=== PATIENT | female | born 1965 | race Caucasian/White ===

== ENCOUNTER 2024-12-31 20:00 | Outpatient (CLI) | payer MEDICARE, SELFPAY | END 2024-12-31 20:01 | disposition home or self-care (01) | LOC: SLEEP 23:58 | PROVIDERS: PCP Nurse Practitioner Primary Care; Visit Provider Anesthesiology Pain Medicine | DX: G47.33 Obstructive sleep apnea (adult) (pediatric) (principal) | CPT/HCPCS: 95810 ==

== ENCOUNTER 2025-04-02 10:20 | Outpatient (CLI) | payer MEDICARE, SELFPAY ==
--- NOTE | 2025-04-02 10:20 | MM_ITS ---
WS: [id number] BILATERAL 3D TOMOSYNTHESIS DIGITAL SCREENING MAMMOGRAPHY WITH CAD CLINICAL INFORMATION: SCREENING HISTORY: Screening mammogram. No current complaints. COMPARISON: None. TECHNIQUE: Bilateral CC and MLO views. FINDINGS: Scattered fibroglandular densities bilaterally. No suspicious focal mass, asymmetry, calcifications, or architectural distortion. No evidence of malignancy. MM/MM scr BI tomosynthesis [id number] IMPRESSION: DENSITY: There are scattered areas of fibroglandular density. BI-RADS: 1 - Negative. FOLLOW UP: 1 Year Follow-up Recommend return to annual screening mammography.
== END 2025-04-02 10:21 | disposition home or self-care (01) ==
LOC: MOBLMAM 10:27
PROVIDERS: PCP Nurse Practitioner Primary Care; Visit Provider Nurse Practitioner Primary Care
DX: Z12.31 Encounter for screening mammogram for malignant neoplasm of breast (principal)
CPT/HCPCS: 77063; 77067

== ENCOUNTER 2025-05-04 00:59 | Emergency (ER) | payer MEDICARE, SELFPAY ==
[2025-05-04 01:08] VITALS: BP 107/68; PULSE 86; RESP 16; TEMP 36.9; O2SAT 97; BMI 33.0
--- OUTSIDE RECORDS SUMMARY | 2025-05-04 01:08 | XMS_ITS | Clinical Summary ---
Author Organization [facility] Address [address] Rodriguez: [place] [address] Care Team Providers Care Outsoles Channel Opener Name Role Phone Unavailable Primary Care Provider Unavailabl e Allergies Active Allergy Reactions Criticality Noted Date Comments Codeine Itching Low 03/15/2017 Nose itched-30yrs ago Medications citalopram (CeleXA) 40 mg tablet Take 40 mg by mouth daily. 8 Active omeprazole (PriLOSEC) 40 mg Capsule, Delayed Release(E.C.) Take 40 mg by mouth daily. 7 Active atenoloL (TENORMIN) 25 mg tablet Take 25 mg by mouth daily. 8 Active metFORMIN (GLUCOPHAGE) 500 mg tablet Take 1,000 mg by mouth 2 times daily with meals. 7 Active nortriptyline (PAMELOR) 10 mg capsule TAKE 5 CAPSULES BY MOUTH DAILY AT BEDTIME FOR HEADACHE AND INSOMNIA 3 Active tiZANidine (ZANAFLEX) 4 mg Tablet TAKE 1 TO 2 TABLETS BY MOUTH EVERY 6 TO 8 HOURS NEEDED do not exceed THREE doses per day 2 Active glipiZIDE (GLUCOTROL) 10 mg tablet TAKE ONE TABLET BY MOUTH two times every day before a meal 2 Active ibuprofen (MOTRIN) 800 mg tablet TAKE 1 TABLET BY MOUTH EVERY 8 HOURS WITH FOOD 2 Active albuterol (PROVENTIL,MARIO EDMOND) 2.5 mg /3 mL (0.083 %) Solution for Nebulization albuterol sulfate 2.5 mg/3 mL (0.083 %) solution for nebulization INHALE THE CONTENTS OF ONE VIAL Q 4-6 HOURS PRN WITH A MAX OF 4 TIMES D Active ALPRAZolam (XANAX) 0.5 mg tablet Take 0.5 mg by mouth daily. 3 Active atorvastatin (LIPITOR) 40 mg tablet atorvastatin 40 mg tablet TK 1 T PO QHS Active benzonatate (TESSALON) 100 mg capsule benzonatate 100 mg capsule TK 2 C PO TID FOR 10 DAYS PRF COUGH Active lamoTRIgine (LaMICtal) 25 mg tablet Take 25 mg by mouth daily. 2 Active meloxicam (MOBIC) 7.5 mg tablet meloxicam 7.5 mg tablet TK 1 T PO BID WC Active carvediloL (COREG) 6.25 mg tablet carvedilol 6.25 mg tablet TK 1 T PO QD Active losartan (COZAAR) 100 mg tablet Take 100 mg by mouth daily. 2 Active fluconazole (DIFLUCAN) 150 mg tablet Take 1 Tablet (150 mg) by mouth every third day. 2 Tablet 3 Active nitroglycerin (NITROSTAT) 0.4 mg Tablet, Sublingual Place 1 Tablet (0.4 mg) under tongue every 5 minutes as needed for Chest Pain. 30 Tablet 3 3 Active buPROPion HCL (Wellbutrin XL) 150 mg Extended Release 24 hour tablet Take 1 Tablet (150 mg) by mouth daily in the morning. 90 Tablet 3 3 Active traZODone (DESYREL) 100 mg tablet Take 1 Tablet (100 mg) by mouth daily at bedtime. 90 Tablet 3 3 Active cholecalciferol 1,250 mcg (50,000 unit) Capsule Take 1 Capsule (50,000 Units) by mouth every 7 days. 13 Capsule 3 3 Active Blood-Glucose Meter Check blood sugar twice daily as directed. E11.65 1 Each 3 Active lancets Check blood sugar twice daily as directed. E11.65 400 Each 4 3 Active blood sugar diagnostic Strip Check blood sugar twice daily as directed. E11.65 400 Strip 4 3 Active Active Problems Problem Noted Date Diagnosed Date Angina pectoris 11/10/2022 Severe episode of recurrent major depressive disorder, without psychotic features 11/10/2022 Morbid obesity 11/10/2022 Mixed hyperlipidemia 11/10/2022 Tension-type headache, not intractable 3 Old [place] (myocardial infarction) 11/10/2022 Type 2 diabetes mellitus wit h complication, without long-term current use of insulin 12/07/2017 Essential hypertension 12/07/2017 Anxiety 12/07/2017 Non-cardiac chest pain 12/07/2017 Leukocytosis 12/07/2017 Encounters Date Type Department Care Team Description 03/27/2025 External Device Data [facility] ABSTRACTION Provider, Abstract 03/01/2025 External Device Data [facility] ABSTRACTION Provider, Abstract 02/28/2025 External Device Data [facility] ABSTRACTION Provider, Abstract from Last 3 Months Immunizations Immunization Administration Dates Next Due (ADACEL/BOOSTRIX)(10 YR UP) TDAP VACCINE, 0.5ML, IM 06/18/2019 Influenza Seasonal Unspecified Formulation IM Family History Medical History Relation Name Comments Heart Disease Father Hypertension Father Diabetes Maternal Grandmother Cancer Mother Hypertension Mother Kidney Disease Mother Stroke Mother Cancer Sister Relation Name Status Comments Father Maternal Grandmother Mother Sister Social History Tobacco Use Types Packs/Day Years Used Date Smoking Tobacco: Former Cigarettes Q uit: 04/09/2021 Smokeless Tobacco: Never Tobacco Cessation:Counseling Given: No Alcohol Use Standard Drinks/Week Comments No 0 (1 standard drink = 0.6 oz pur e alcohol) Comments No Sex and Gender Information Value Date Recorded Sex Assigned at Not on file Legal Sex Female 5:04 AM BICYCLE REPAIRER Gender Identity Not on file Sexual Orientation Not on file Last Filed Vital Signs Vital Sign Reading Time Taken Comments Blood Pressure 158/92 11/10/2022 10:52 AM BICYCLE REPAIRER Pulse 101 11/10/2022 10:47 AM BICYCLE REPAIRER Temperature 36.2 C (97.1 F) 11/10/2022 10:47 AM BICYCLE REPAIRER Respiratory Rate 13 06/18/2019 11:1 0 AM CDT Oxygen Saturation 95% 11/10/2022 10: 47 AM BICYCLE REPAIRER Inhaled Oxygen Concentration - - Weight 106.8 kg (235 lb 6.4 oz) 023 10:47 AM BICYCLE REPAIRER Height 170.2 cm (5' 7 ) 11/10/2022 10:4 7 AM BICYCLE REPAIRER Body Mass Index 36.87 11/10/2022 10:47 AM BICYCLE REPAIRER Plan of Treatment Health Maintenance Due Date Last Done Comments DIABETES ANNUAL FOOT EXAM 1983 DIABETES ANNUAL RETINAL EXAM 1983 DIABETES MICROALBUMIN ANNUAL SCREEN 1983 HPV/Cotest (21-29) 1986 CERVICAL CANCER SCREENING 1995 HPV/Cotest (30-65) 1995 PAP SMEAR 1995 COLORECTAL SCREENING 2010 Colorectal Cancer Screening 2010 FIT-DNA Q 3 years 2010 FIT/FOBT Q 1 year 2010 Flex Sig/CT Colonography Q 5 years 2010 ZOSTER VACCINE (1 of 2) 2015 BREAST CANCER SCREENING 05/20/2018 05/20/20 17, 05/20/2017, 01/27/2016 DIABETES HBA1C Q 6 MONTHS 07/01/20232022, 11/11/2022, 12/07/2017, Additional history exists LDL CHOLESTEROL ANNUAL 11/11/2023 , 05/09/2017, 01/20/2017 COVID-19 Vaccine (2 - season) 2024 07/07/2021 RSV VACCINE (60+ or ) (1 - Risk 60-74 years 1-dose series) 2025 INFLUENZA VACCINE (#1) 2025 08/09/2022, 2016 DTAP/TDAP/TD VACCINES (3 - Td or Tdap) 03/24/2030 03/24/2020, 06/18/2019 HEPATITIS B VACCINES Aged Out No long er eligible based on patient's age to complete this topic Procedures Procedure Name Priority Date/Time Associated Diagnosis Comments LIPID PANEL Routine 11/11/2022 2:36 PM BICYCLE REPAIRER Type 2 diabetes mellitus with other circulatory complication, without long-term current use of insulin ([facility]) Essential hypertension HEMOGLOBIN A1C Routine 11/11/2022 2:36 PM BICYCLE REPAIRER Type 2 diabetes mellitus with other circulatory complication, without long-term current use of insulin (CMS/HCC) MAMMO SCREEN BILAT W OR WO CAD Routine 05/20/2017 12:00 AM CDT from Last 3 Months or Most Recently Relevant to Health Maintenance Results * (ABNORMAL) HEMOGLOBIN A1C (11/11/2022 2:36 PM BICYCLE REPAIRER) HEMOGLOBIN A1C 11.3(H) <5.7 % of total Hgb [facility] Comment: For someone without known diabetes, a hemoglobin A1c value of 6.5% or greater indicates that they may have diabetes and this should be confirmed with a follow-up test. For someone with known diabetes, a value <7% indicates that their diabetes is well controlled and a value greater than or equal to 7% indicates suboptimal control. A1c targets should be individualized based on duration of diabetes, age, comorbid conditions, and other considerations. Currently, no consensus exists regarding use of hemoglobin A1c for diagnosis of diabetes for children. ESTIMATED AVERAGE GLUCOSE (MG/DL) 278 mg/dL [facility] ESTIMATED AVERAGE GLUCOSE (MMOL/L) 15.4 mmol/L [facility] Comment: Test Performed at: [facility] [address] [facility] [place] [address] Suni Dasilva MD Blood 11/11/2022 2:36 PM BICYCLE REPAIRER 11/12/2022 1:09 AM BICYCLE REPAIRER Sonia Carlos [facility] CHEMISTRY ORDERABLES Final Result [facility] [phone] [employer] [address] [facility] [employer] [phone] * (ABNORMAL) LIPID PANEL (11/11/2022 2:36 PM BICYCLE REPAIRER) CHOLESTEROL 176 <200 mg/dL [facility] HDL 45(L) > OR = 50 mg/dL [facility] TRIGLYCERIDE 156(H) <150 mg/dL [facility] LDL CALCULATED 104(H) mg/dL (calc) [facility] Comment: Reference range: <100 Desirable range <100 mg/dL for primary prevention; <70 mg/dL for patients with CHD or diabetic patients with > or = 2 CHD risk factors. LDL-C is now calculated using the Nicole calculation, which is a validated novel method providing better accuracy than the Friedewald equation in the estimation of LDL-C. Luis EMERY et al. VIRGILIO. 2013;310(19): 7282-1011 (http://education.Okeo/faq/NIC955) CHOL/HDL RATIO 3.9 <5.0 (calc) [facility] TOTAL NON-HDL CHOL(LDL+VLDL) 131(H) <130 mg/dL (calc) [employer] [facility] Comment: For patients with diabetes plus 1 major ASCVD risk factor, treating to a non-HDL-C goal of <100 mg/dL (LDL-C of <70 mg/dL) is considered a therapeutic option. Test Performed at: [employer] [address] [place] [address] Suni Dasilva MD Blood 11/11/2022 2:36 PM BICYCLE REPAIRER 11/12/2022 1:09 AM BICYCLE REPAIRER Sonia Carlos OIL EXPELLER OPERATOR CHEMISTRY ORDERABLES Final Result [facility] [phone] [place] [employer] [facility] [address] [place] [address] * MAMMO SCREEN BILAT W OR WO CAD (05/20/2017 12:00 AM CDT) Anatomical Region Laterality Modality Breast Bilateral Other us Abstract Spg Provider MAMMO ORDERABLES Final Res ult from Last 3 Months or Most Recently Relevant to Health Maintenance Insurance [facility] MEDIC[facility] HMO
--- OUTSIDE RECORDS SUMMARY | 2025-05-04 01:08 | XMS_ITS | Clinical Summary ---
Author Organization [facility] Address [address] [address] [place] [address] Care Team Providers Care Fireman Helper Name Role Phone Unavailable Primary Care Provider Unavailabl e Allergies Active Allergy Reactions Criticality Noted Date Comments Codeine Itching Low 03/15/2017 Nose itched-30yrs ago Medications metFORMIN (GLUCOPHAGE) 500 mg tablet Take 1,000 mg by mouth 2 times daily with meals. Active losartan (COZAAR) 50 mg tablet Take 50 mg by mouth daily. Active carvedilol (COREG) 12.5 mg tablet Take 12.5 mg by mouth daily . Active omeprazole (PriLOSEC) 40 mg Capsule, Delayed Release(E.C.) Take 40 mg by mouth daily. Active HYDROcodone-talat taminophen (NORCO) 5-325 mg tablet Take 1 Tablet by mouth every 4 hours as needed for Pain, Moderate. Max Daily Amount: 6 Tablets 20 Tablet 08/02/2017 Active atenolol (TENORMIN) 25 mg tablet Take 25 mg by mouth daily. Active citalopram (CeleXA) 40 mg tablet Take 40 mg by mouth daily. Active nitroglycerin (NITROSTAT) 0.4 mg Tablet, Sublingual Place 0.4 mg under tongue every 5 minutes as needed for Chest Pain. Active GLIPIZIDE ORAL Take by mouth. Active Active Problems Problem Noted Date Diagnosed Date Non-cardiac chest pain 12/07/2017 Type 2 diabetes mellitus wit h complication, without long-term current use of insulin 12/07/2017 Essential hypertension 12/07/2017 Anxiety 12/07/2017 Leukocytosis 12/07/2017 Immunizations Immunization Administration Dates Next Due (ADACEL/BOOSTRIX)(10 YR UP) TDAP VACCINE, 0.5ML, IM 06/18/2019 Family History Medical History Relation Name Comments Heart Disease Father Diabetes Maternal Grandmother Cancer Mother Cancer Sister Relation Name Status Comments Father Maternal Grandmother Mother Sister Social History Tobacco Use Types Packs/Day Years Used Date Smoking Tobacco: Every Day Cigarettes 0.8 25 Smokeless Tobacco: Never Tobacco Cessation:Ready to Q uit: Yes Alcohol Use Standard Drinks/Week Comments No 0 (1 standard drink = 0.6 oz pur e alcohol) Comments No Sex and Gender Information Value Date Recorded Sex Assigned at Not on file Legal Sex Female 5:01 AM APPRAISER PERSONAL PROPERTY Gender Identity Not on file Sexual Orientation Not on file Last Filed Vital Signs Vital Sign Reading Time Taken Comments Blood Pressure 120/81 10/22/2019 9:06 AM APPRAISER PERSONAL PROPERTY Pulse 96 10/22/2019 9:06 AM APPRAISER PERSONAL PROPERTY Temperature 38 C (100.4 F) 06/18/2019 10:05 AM CDT Respiratory Rate 13 06/18/2019 11:10 AM CDT Oxygen Saturation 97% 10/22/2019 9:06 AM APPRAISER PERSONAL PROPERTY Inhaled Oxygen Concentration - - Weight 108 kg (238 lb) 10/22/2019 9:06 AM APPRAISER PERSONAL PROPERTY Height 170.2 cm (5' 7 ) 10/22/2019 9:06 AM APPRAISER PERSONAL PROPERTY Body Mass Index 37.28 10/22/2019 9:06 AM APPRAISER PERSONAL PROPERTY Plan of Treatment Health Maintenance Due Date [...] 2010 ZOSTER VACCINE (1 of 2) 2015 LDL CHOLESTEROL ANNUAL 05/09/2018 7, 01/20/2017 BREAST CANCER SCREENING 05/20/2018 05/20/20 17, 01/27/2016 DIABETES HBA1C Q 6 MONTHS 06/06/2018 12/07/2017 INFLUENZA VACCINE (#1) 2025 DTAP/TDAP/TD VACCINES (2 - T d or Tdap) 06/18/2029 06/18/2019 RSV VACCINE (60+ or ) (1 - 1-dose 75+ series) 01/18/2040 HEPATITIS B VACCINES Aged Out No long er eligible based on patient's age to complete this topic Procedures Procedure Name Priority Date/Time Associated Diagnosis Comments HEMOGLOBIN A1C Routine 12/07/2017 3:02 PM APPRAISER PERSONAL PROPERTY MAMMO SCREEN BILAT W OR WO CAD Routine 05/20/2017 LIPID PANEL Routine 05/09/2017 from Last 3 Months or Most Recently Relevant to Health Maintenance Results * (ABNORMAL) HEMOGLOBIN A1C (12/07/2017 3:02 PM APPRAISER PERSONAL PROPERTY) HEMOGLOBIN A1C 7.0(H) 4.0 - 6.0 % 12/08/2017 11:41 AM APPRAISER PERSONAL PROPERTY [facility] [employer] [facility] EST. AVG GLUCOSE, A1C 154 mg/dL 12/08/2017 11:41 AM APPRAISER PERSONAL PROPERTY [facility] [employer] [facility] Blood Venipuncture / Unknown 12/07/2017 3:02 PM APPRAISER PERSONAL PROPERTY 12/07/2017 3:07 PM APPRAISER PERSONAL PROPERTY Narrative [facility] [employer] [facility] - 12/08/2017 11:41 AM APPRAISER PERSONAL PROPERTY Test performed on [employer] instrumentation using HPLC methodology us Pooja Mclean DO CHEMISTRY ORDERABLES Final Result [facility] CLIA# [id number] [address] [place] [id number] * MAMMO SCREEN BILAT W OR WO CAD (05/20/2017) Anatomical Region Laterality Modality Breast Bilateral Mammography us Abstract Spg Provider MAMMO ORDERABLES Final Res ult * LIPID PANEL (05/09/2017) ABSTRACTED CHOLESTEROL 209 EXTERNAL LAB ABSTRACTED TRIGLYCERIDE 401 EXTERNAL LAB ABSTRACTED HDL 39 EXTERNAL LAB ABSTRACTED LDL CALCULATED EXTERNAL LAB CHOLESTEROL <=200 mg/dL EXTERNAL LAB TRIGLYCERIDE <=150 mg/dL EXTERNAL LAB HDL 40 - 59 mg/dL EXTERNAL LAB LDL CALCULATED <=100 mg/dL EXTERNAL LAB Blood 05/09/2017 us Abstract Spg Provider CHEMISTRY ORDERABLES Edite d Result - Final EXTERNAL LAB from Last 3 Months or Most Recently Relevant to Health Maintenance Advance Directives For more information, please contact: [phone] * Full Code (Latest Code Status on File) Date Activated Date Inactivated Comments 12/07/2017 2:30 PM 12/08/2017 2:52 PM
--- OUTSIDE RECORDS SUMMARY | 2025-05-04 01:08 | XMS_ITS | Encounter Summary ---
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
--- OUTSIDE RECORDS SUMMARY | 2025-05-04 01:08 | XMS_ITS | Data Portability ---
Author Organization [place] - [facility], [facility] Address [address] [facility] [address] [place] [address] Assessment No assessment recorded. Plan of Treatment Reminders Order Date Submit Date Provider Last Modified By Organization Details Last Modified Time Details Appointments None recorded. Lab None recorded. Referral physical therapist referral 2023 024 [email or web address] [facility]), [address], [place], [address], 4 22:04:08 occupationa l therapist referral [email or web address] [place] [address] Physical [facility]), [address], [place], [address], 4 10:01:56 physical therapist referral [address] Physical [facility]), [address], [place], [address], 7 09:50:03 physical therapist referral - No rotator cuff repair. [address] Physical [facility]), [address], [place], [address], 7 10:04:57 Procedures None recorded. Surgeries None recorded. Imaging XR, shoulder, 2 or more view 2023 024 lrcalli [facility], [address] [place], [address], 4 22:04:08 XR, wrist, 3 or more view 2023 024 manpreet [facility], [address] [place], [address], 4 22:04:08 Medication Orders cyclobenzap rine 5 mg tablet 2016 017 [facility] #[id number], [address], [place], [phone], 7 18:12:06 Mobic 7.5 mg tablet 2016 017 [id number], [address], [place], [phone], 7 18:12:06 Patient TargetsNo targets recorded. Patient Instructions Encounter Date Encounter Id Patient Instructions Last Modified By Organization Details Last Modified Time 02/21/2017 [id number] bandaids applied . formal PT, full ROM and strengthening. no repair performed. no calf tenderness bilaterally, no s/sx dvt or PE. lrichie Not available 02/21/2017 21:12:27 02/28/2017 [id number] enroll in PT HAYLEY. sling for comfort. increase activity as tolerated. PT with full ROM, strengthening, cuff activation. SAD. no RCR was performed. lrichie Not available 03/01/2017 07:54:30 05/09/2017 [id number] work status report* lrichie Not available 05/09/2017 18:12:06 patient does require aggressive PT for ROM strenghtening. no limitations. provided ASHLEY in order to help decrease inflammation. I hve concerns over patients pain tolerance as her previous carpal tunnel surgery also had significant and prolonged recovery, we will continue to monitor and treat appropriately. lrichie Not available 05/09/2017 23:24:35 Ultram 50mg [email or web address] Not available 04/11 16:11:50 Reason for Referral No rotator cuff repair. Referring Physician: Phillip Hull, Orthopedic Surgery, Encounter Date: 02/21/2017 Referring Physician: Phillip mccurdy, Orthopedic Surgery, Encounter Date: 05/09/2017 Occupational Therapist Refer ral for Tendinitis of left wrist region Referring Physician: Phillip Hull, Orthopedic Surgery, Encounter Date: 04/17/2024 Physical Therapist Referral for Subacromial impingement Referring Physician: Phillip Hull, Orthopedic Surgery, Encounter Date: 04/17/2024 Results Created Date Observation Date Name Description Value Unit Range Abnormal Flag Note LastModifiedBy Organization Detail LastModifiedTime 02/10/20 17 XR, chest No observ ation record ed. [facility] (Breast Mammograms) [address] [place], [address], 02/11/2017 12:11:29 02/26/20 17 02/16/2017 clini maryan photo * No observ ation record ed. [email or web address] Not Available 2016 16:43:46 04/16/20 24 XR, shoul jonatan, 2 or more view No observ ation record ed. FADUMO [address], [address], 04/17/2024 15:14:27 04/17/20 24 XR, wrist , 3 or more view No observ ation record ed. [email or web address] [address], [address], 04/17/2024 15:27:46 Result Notes None recorded. Problems Name Problem SNOMED Code Status Onset Date Resolution Date Notes Provider Name and Address Organization Details Recorded Time Pain of joint of wrist 753128690 Active 014 Not Available [facility] 7 12:32:34 Knee pain Active 017 Not Available [facility] 7 12:32:35 Pain of shoulder region 61626367 Active 017 Pamela Larson [facility], [facility], 7 16:35:03 Problem Notes None recorded. Procedures Surgical History Date Name Laterality Status Provider Name and Address Organization Details Recorded Time 7 lbr.inj.subacr omial completed Carmelina Daugherty [facility], 05/09/2017 16:12:30 7 Shoulder Surgery completed Carmelina Daugherty [facility], 02/28/2017 14:53:25 procedure on spine completed Mayra Andres [facility], 04/17/2024 15:34:38 Hernia Repair completed Pamela Larson [facility], 02/21/2017 16:38:11 Hand Surgery completed Pamelacarli Larson [facility], 02/21/2017 16:40:26 Imaging Results None recorded. Procedure Notes None recorded. Medical Equipment None Reported. Allergies Allergen ID Allergen Name Allergen Category Reaction Reaction Severity Criticality Documentation Date Start Date Code Code System Note Provider Name and Address Organization Details Recorded Time 922191 codeine phosphate medicatio n itching Not available Not available 01/13/20172013 2672 RxNorm React ion: itch; Not Available [facility] 7 12:29:44 690859 codeine phosphate medicatio n itching Not available Not available 04/16/20172013 2672 RxNorm React ion: itch; Not Available [facility] 7 02:44:00 Medications Name Sig Start Date Stop Date Status Note LastModified by Organization Details LastModified Time Prescript ion - New active Percocet 7.5mg # 20 Not Available Not Available Not Available losartan 50 mg tablet TAKE 1 TABLET BY MOUTH ONCE DAILY active Not Available Not Available No t Available fluoxetin e 40 mg capsule TAKE TWO CAPSULES BY MOUTH EVERY DAY IN THE MORNING. active Not Available Not Available No t Available amoxicill in 500 mg capsule TAKE 1 CAPSULE BY MOUTH THREE TIMES DAILY UNTIL GONE active Not Available Not Available No t Available atorvasta tin 40 mg tablet TK 1 T PO QHS active Not Available Not Available No t Available diclofena c 3 % topical gel APPLY TID TO AA PRN 2016 active Not Available Not Available Not Avai lable carvedilo l 6.25 mg tablet TK 1 T PO QD active Not Available Not Available No t Available prednison e 10 mg tablet active Not Available Not Available Not Available atorvasta tin 20 mg tablet take one tablet by mouth every day active Not Available Not Available No t Available carvedilo l 12.5 mg tablet TAKE 1 TABLET BY MOUTH TWICE DAILY WITH FOOD active Not Available Not Available No t Available albuterol sulfate 2.5 mg/3 mL (0.083 %) solution for nebulizat ion INHALE THE CONTENTS OF ONE VIAL Q 4-6 HOURS PRN WITH A MAX OF 4 TIMES D active Not Available Not Available No t Available citalopra m 40 mg tablet TK 1 T PO QD active Not Available Not Available No t Available azithromy adeel 250 mg tablet active Not Available Not Available No t Available ibuprofen 800 mg tablet TAKE 1 TABLET BY MOUTH EVERY 8 HOURS WITH FOOD active Not Available Not Available No t Available tizanidin e 4 mg tablet TAKE 1 TO 2 TABLETS BY MOUTH EVERY 6 TO 8 HOURS NEEDED . DO NOT EXCEED 3 DOSES PER 24 HOURS active Not Available Not Available No t Available fluconazo le 150 mg tablet TK 1 T PO QD FOR 3 DAYS active Not Available Not Available No t Available hydrocodo ne 5 mg-acetam inophen 325 mg tablet TAKE 1 TABLET BY MOUTH EVERY 6 TO 8 HOURS NEEDED FOR PAIN active Not Available Not Available No t Available meloxicam 15 mg tablet TAKE 1 TABLET BY MOUTH ONCE DAILY active Not Available Not Available No t Available FreeStyle Lancets 28 gauge USE TO TEST TID active Not Available Not Available No t Available glipizide 10 mg tablet TAKE 1 TABLET BY MOUTH TWICE DAILY BEFORE MEAL(S) active Not Available Not Available No t Available isosorbid e mononitra te ER 30 mg tablet,ex tended release 24 hr take one tablet by mouth every day active Not Available Not Available No t Available clindamyc in HCl 150 mg capsule TAKE 1 CAPSULE BY MOUTH THREE TIMES DAILY UNTIL GONE active Not Available Not Available No t Available metronida zole 500 mg tablet TK 1 T PO BID FOR 7 DAYS active Not Available Not Available No t Available acetamino phen 300 mg-codein e 30 mg tablet TAKE 1 TO 2 TABLETS BY MOUTH EVERY 6 TO 8 HOURS NEEDED active Not Available Not Available No t Available hydrocodo ne 10 mg-acetam inophen 325 mg tablet TAKE ONE TABLET BY MOUTH EVERY 4 HOURS NEEDED for PAIN active Not Available Not Available No t Available peg-elect rolyte solution 420 gram oral solution TAKE DIRECTED per colonosc opy prep instruct ions active Not Available Not Available No t Available omeprazol e 40 mg capsule,d elayed release TK 1 C PO QD IN THE MORNING active Not Available Not Available No t Available tramadol 50 mg tablet TAKE 1 TO 2 TABLETS BY MOUTH FOUR TIMES DAILY NEEDED do not exceed EIGHT tabs per day active Not Available Not Available No t Available lamotrigi ne 25 mg tablet TAKE 1 TABLET BY MOUTH TWICE DAILY active Not Available Not Available No t Available cefadroxi l 500 mg capsule active Not Available Not Available Not Available meloxicam 7.5 mg tablet TK 1 T PO BID WC active Not Available Not Available No t Available oxycodone -acetamin ophen 5 mg-325 mg tablet TK 1 T PO Q 6 H PRN P FOR 10 DAYS active Not Available Not Available No t Available alprazola m 0.5 mg tablet TAKE 1 TABLET BY MOUTH ONCE DAILY active Not Available Not Available No t Available famotidin e 20 mg tablet active Not Available Not Available Not Available oxycodone -acetamin ophen 10 mg-325 mg tablet TK 1 T PO EVERY 4 HOURS PRN FOR PAIN active Not Available Not Available No t Available OneTouch Ultra Test strips CHECK BLOOD SUGARS THREE TIMES DAILY active Not Available Not Available No t Available baclofen 10 mg tablet TK 1 T PO TID active Not Available Not Available No t Available benzonata te 100 mg capsule TK 2 C PO TID FOR 10 DAYS PRF COUGH active Not Available Not Available No t Available pantopraz ole 40 mg tablet,de layed release take one tablet by mouth every day active Not Available Not Available No t Available trazodone 150 mg tablet take one tablet by mouth every day active Not Available Not Available No t Available nitroglyc sue 0.4 mg sublingua l tablet DISSOLVE ONE TABLET UNDER THE TONGUE EVERY 5 MINUTES NEEDED FOR CHEST PAIN. DO NOT EXCEED A TOTAL OF 3 DOSES IN 15 MINUTES. IF NO RELIEF SEEK MEDICAL ATTENTIO N. active Not Available Not Available No t Available gabapenti n 300 mg capsule TAKE THREE CAPSULES BY MOUTH THREE TIMES DAILY active Not Available Not Available No t Available bisacodyl 5 mg tablet,de layed release TAKE 4 TABLETS BY MOUTH ONCE DIRECTED PER COLONOSC OPY PREP INSTRUCT IONS active Not Available Not Available No t Available levofloxa adeel 500 mg tablet TK 1 T PO QD FOR 10 DAYS active Not Available Not Available No t Available oxycodone -acetamin ophen 7.5 mg-325 mg tablet TK 1 T PO PO Q 6 H PRN P active Not Available Not Available No t Available methylpre dnisolone 4 mg tablets in a dose pack active Not Available Not Available Not Available albuterol sulfate HFA 90 mcg/actua tion aerosol inhaler active Not Available Not Available Not Available ondansetr on 4 mg disintegr ating tablet ALLOW ONE T TO DISSOLVE UNDER THE TONGUE Q 6 HOURS PRN FOR NAUSEA active Not Available Not Available No t Available fluticaso ne propionat e 50 mcg/actua tion nasal spray,audrey pension SHAKE LQ AND U 2 SPRAYS IEN D active Not Available Not Available No t Available metformin ER 500 mg tablet,ex tended release 24 hr TAKE 2 TABLETs BY MOUTH DAILY with evening meal active Not Available Not Available No t Available loratadin e 10 mg tablet active Not Available Not Available Not Available nortripty line 50 mg capsule TAKE 1 CAPSULE BY MOUTH ONCE DAILY IN THE EVENING active Not Available Not Available No t Available metoclopr amide 10 mg tablet TAKE ONE TABLET BY MOUTH ONCE DIRECTED PER COLONOSC OPY PREP INSTRUCT IONS active Not Available Not Available No t Available amoxicill in 875 mg-potass ium clavulana te 125 mg tablet TAKE ONE TABLET BY MOUTH EVERY TWELVE HOURS for 7 days active Not Available Not Available No t Available oxycodone 5 mg tablet active Not Available Not Available Not Available azithromy adeel 500 mg tablet TK 1 T PO QD FOR 5 DAYS 02/28 completed med update Not Available Not Available Not Available cyclobenz aprine 5 mg tablet TK 1 T PO TID active Not Available Not Available No t Available FreeStyle Lite Meter kit FPD active Not Available Not Available No t Available Golytely 236 gram-22.7 4 gram-6.74 gram-5.86 gram oral solution TAKE DIRECTED PER COLONOSC OPY DIRECTIO NS active Not Available Not Available No t Available Brilinta 90 mg tablet active Not Available Not Available Not Available Vascepa 1 gram capsule TK 2 CS PO BID WC active Not Available Not Available No t Available Invokana 300 mg tablet TK 1 T PO QD active Not Available Not Available No t Available OneTouch Ultra2 Meter CHECK BLOOD SUGARS THREE TIMES DAILY active Not Available Not Available No t Available OneTouch Delica Plus Lancet 30 gauge USE TO CHECK GLUCOSE THREE TIMES DAILY active Not Available Not Available No t Available Vitals Date Recorded Body height Body weight Body mass index (BMI) Heart rate Systolic And Diastolic Provider Name and Address Organization Details Last Updated DateTime 02/21/2017 170.18 cm 221632.1 6 g 41.8 kg/m2 83 /min 103/62 mm[Hg] Pamela Larson [facility], 02/21/2017 16:44:35 Date Recorded Body height Body weight Body mass index (BMI) Provider Name and Address Organization Details Last Updated DateTime 02/28/2017 170.18 cm 934347.98 g 37.3 kg/m2 Carmelina Dat [facility], 02/28/2017 14:51:30 Date Recorded Body height Body mass index (BMI) Body weight Provider Name and Address Organization Details Last Updated DateTime 04/17/2024 170.18 cm 33.7 kg/m2 45629.36 g Mayra Andres [facility], 04/17/2024 15:32:38 Date Recorded Body height Body mass index (BMI) Body weight Provider Name and Address Organization Details Last Updated DateTime 05/09/2017 170.18 cm 36.6 kg/m2 367025.61 g Miil Cristian [facility], 05/09/2017 15:09:11 Social History Question Answer Notes LastModified by Organizat ion Details LastModified Time Tobacco Smoking Status Current Every Day Smoker Pamela ocampo [facility], 02/21/2017 16:37:12 What Was The Date Of Your Most Recent Tobacco Screening? 05/09/2017 Information n ot available 05/02/2019 At What Age Did You Start Smoking Tobacco? 15 Information not available 02/21/2017 How Much Tobacco Do You Smoke? 0.5 PPD Information not available 02/21/2017 Sex: Unknown Functional Status Question Answer Note LastModified by Organization D etails LastModified Time What is your level of alcohol consumption? None Information not available 02/21/2017 Mental Status None recorded. Family History Relationship Description Onset Age of this Age Resolved Age Notes LastModified by Organization Details LastModified Time Paternal Grandfather Diabetes mellitus Not available 2016 16:35:21 Mother Hypertensive disorder Not available 2016 16:35:33 Mother Arthritis Not availab le 02/21/2017 16:36:02 Mother Malignant neoplastic disease mother and sister [email or web address] Not available 04/17/2024 15:33:26 Father Hypertensive disorder Not available 2016 16:35:33 Father Heart disease Not available 2016 16:35:40 Father Arthritis Not availab le 02/21/2017 16:36:02 Medical History Condition Response Pancreatitis N HEME - Anemia N Gout N Hyperthyroidism Y Rheumatoid arthritis N Irritable bowel syndrome N Osteoarthrosis N HEENT - Wears corrective lenses N COPD N Depression N Pneumonia N Peptic ulcer disease N History of head and neck tumor N NEURO - Cerebral palsy N Skin infection N Active aids N Mitral valve prolapse N Renal failure N HIV positive N GI - GERD N Joint injury N Hypercholesterolemia N Hypoparathyroidism N MS - Fracture N Cerebrovascular accident N Fibromyalgia N PSYCHE - Claustrophobia N Neuromuscular disease N Poliomyelitis / post polio N ENDOCRINE - Obesity N Hearing impairment N Dysvascular amputation LE N Other diagnosis N Anxiety disorder N Deformity N CHEST - Sleep apnea Y Crohn's disease N Pulmonary embolism N Chronic venous stasis disease N Psychosis N Coagulopathy N Cardiac valvular disease N Asthma Y Blood clotting disorder N Are you under pain mgmt treatment N Fragility fracture N Vertigo N Hepatitis N Neuropathy N Coronary artery disease N Pressure sore N Diabetes Type II (NIDDM) Y Skin ulceration N Bipolar disorder N Glaucoma N Legally blind N Hypothyroidism N Sinusitis / sinus infection N Pacemaker N Peripheral vascular disease N Cystic fibrosis N Cholecystitis N Sickle cell N VASCULAR - Deep venous thrombosis N Osteomyelitis N SKIN - Rash N INFECTIOUS - Current active infection N Heart murmur N Previous myocadial infarction N Itp / ttp N Congestive heart failure N Lupus Arthritis N Skin bruising N HEART - Arrhythmia N Diabetes Type I (IDDM) N Chemically anticoagulated N Dental caries / gingivitis N Fracture non-union N Dysvascular gangrene N - Cystitis N Renal dialysis N Diverticulitis N Dementia N Ulcerative colitis N Seizure disorder N MISC - Cancer N Organ transplant N Hypertension Y Osteoporosis N Gynecological HistoryNo gynecological history recorded. Obstetrics History GPAL:G 0 P 0 0 0 0 Past Encounters Encounter ID Performer Location Encounter Start Date Encounter Closed Date Diagnosis/Indication Diagnosis SNOMED-CT Code Diagnosis ICD10 Code Diagnosis Note [id number] Phillip Hull MD [address] [address] 02/21/2017 16:12:06 02/21/2017 17:23:01 Subacromial impingement 348745775 M75.41 [id number] Phillip Hull MD [address] [address] 02/28/2017 14:41:49 02/28/2017 15:47:27 Impingement syndrome of shoulder region 231540349 M75.41 [id number] Phillip Hull MD [address] [address] 05/09/2017 14:47:26 05/09/2017 16:26:26 Impingement syndrome of shoulder region 473040102 M75.41 [id number] Phillip Hull MD [address] [address] 04/17/2024 14:55:16 04/17/2024 16:14:49 Pain of left shoulder joint 6637360308 3740891 M25.512 Pain of left wrist 81828 45439 83872 M25.532 Tendinitis of left wrist region 7888051933 8602577 M67.834 Subacromia l impingement 633834147 M75.41 Health Concerns Section Related Observation LastModified by Organization Detai ls LastModified Time None Recorded Concern Status LastModified by Organization Details LastModified Time None Recorded Advance Directives Directive None Recorded Payers Insurance Date Sequence Insurance Name Policy Number Policy [place] Covered Member ID [place] Member ID Guarantor Name 07/25/2024 1 [employer] (MEDICARE REPLACEMENT/ADVA NTAGE - HMO) [id number] Crystal L Ruffin [id number] Crystal L Ruffin 04/30/2024 1 [employer] [id number] O Crystal L Ruffin [id number] Crystal Bucio Ruffin 04/17/2024 3 [facility] (INSTITUTIONAL) [id number] Crystal Bucio Ruffin [id number] Crystal Bucio Ruffin 04/17/2024 2 [facility] (MEDICAID REPLACEMENT - HMO) [id number] Crystal Bucio Ruffin [id number] Crystal Bucio Ruffin 04/17/2024 1 [facility] (O) [id number] Crystal Bucio Ruffin [id number] Crystal Bucio Ruffin Notes Date Note Type Note Provider Name and Address Organization Details Recorded Time 7 text/html ShoulderReported by PatientHPIFor associated symptoms, patient reportsswellingbut reportsno numbness,no tingling,no redness,no warmth,no ecchymosis,no instability,no fever, andno chills. For location, patient reportsright. For quality, patient reportsaching,throbbing , andconstant. For severity, patient reportsmoderate. For aggravating factors, patient reportspushing/pulling( movement). For alleviating factors, (resting).ROS as noted in the HPI Patient is s/p right shoulder arthroscopy with extensive debridement, subacromial decompression with acromioplasty, distal clavicle excision, proximal biceps tenotomy on 02/16/17. Phillip Hull MD [address] [place] [address], [phone], [facility], 02/21/2017 21:13:04 7 text/html ShoulderReported by PatientHPIFor associated symptoms, patient reportsswellingbut reportsno numbness,no tingling,no redness,no warmth,no ecchymosis,no instability,no fever, andno chills. For location, patient reportsright. For quality, patient reportsaching,throbbing , andconstant. For severity, patient reportsmoderate. For aggravating factors, patient reportspushing/pulling( movement). For alleviating factors, (resting).ROS as noted in the [facility] Patient is s/p right shoulder arthroscopy with extensive debridement, subacromial decompression with acromioplasty, distal clavicle excision, proximal biceps tenotomy on 02/16/17. she has discontinued sling, she has NOT been enrolled in PT and says they have not contacted her. continue to have pain and significant motion and strength deficits. no fevers no chills no nightsweats. pain medication does help control her pain. Phillip Hull MD [address] [place] [address] [address], [place], [address], [facility], 03/01/2017 07:54:49 7 text/html ShoulderReported by PatientHPIFor associated symptoms, patient reportsswellingbut reportsno numbness,no tingling,no redness,no warmth,no ecchymosis,no instability,no fever, andno chills. For location, patient reportsright. For quality, patient reportsaching,throbbing , andconstant. For severity, patient reportsmoderate. For aggravating factors, patient reportspushing/pulling( movement). For alleviating factors, (resting).ROS as noted in the HPI Patient is s/p right shoulder arthroscopy with extensive debridement, subacromial decompression with acromioplasty, distal clavicle excision, proximal biceps tenotomy on 02/16/17. She states her pain is worse now than before surgery. she says her out of state therapy says they could no longer help her. pain is constant, aching. she feels still. no radiation. no repeat trauma. no fevers chills or nightsweats. pain with worse with motion, particularly anything overhead. Phillip Hull MD [address] [facility], [place], [address], [facility], 05/09/2017 23:24:56 4 text/html Patient is a 59yo female who presents with left shoulder pain and left wrist pain. Patient states that her left shoulder has been bothering her for about a year. Reports that it is on the top of her shoulder and it feels excruciating pain when she attempts to lift her arm too far. Reports that it feels okay when just sitting there. Reports that she has felt one pop in the year span but it felt good. Patient states that her left wrist has been bothering her for over a year now. Reports that she has popping and pain on the ulnar side of her wrist. Reports that the pain is like it needs to pop but won't do it. Phillip Hull MD [address] [facility] [address], [place], [address], [place] [facility], 04/22/2024 17:07:58 OBGyn Episode No OBEpisode recorded.
--- OUTSIDE RECORDS SUMMARY | 2025-05-04 01:09 | XMS_ITS | Patient Health Record ---
Author Organization [facility] Address [address] [place], [place] [address] Care Team Providers Care Cadence Specialists Name Role Phone Tyshawn VALVE SETTER, Aimee Primary Care Provider Vania Mayorga MD, Laci Unavailable [phone] Maddie Ko Unavailable [phone] Allergies No Known Allergies Results Component Value Reference Range Notes Urine tox screen / MS if ind icated Reviewed date:09/10/2024 03:58:05 PM Interpretation:Consistent Performing Lab: Notes/Report: Consistent Reason For Referral Reason Dorsalgia; Other spo ndylosis, lumbar region Diagnosis 1 Dorsalgia, unspecifi ed (M54.9) Diagnosis 2 Other spondylosis, l umbar region (M47.896) Referring Provider First Name Aimee Referring Provider Last Name Tyshawn Referring Provider Speciality [facility] ctice Referred Organization [facility] Referred Provider Laci Mayorga Referred Address [address], [id number], Referred Provider Specialty Pain Managem ent General Notes Agueda Anguiano 12:21:27 PM >Sent for insurance verification. Will chromosomal disorders counselor on no show.Kenia Allison M 07/12/2024 09:17:15 AM >Active. $30.00 Silvio box Danielle 07/12/2024 01:23:10 PM >Left message to schedule. Referral Priority Routine Reason Sleep Study (03143)/ CPAP Titration Study (46885) as appropriate Diagnosis 1 Obstructive sleep ap darshana (adult) (pediatric) (G47.33) Referral Organization [facility] Referring Provider First Name Laci Referring Provider Last Name Tierra Referring Provider Speciality Pain Manag ement Referred Provider Lab, Sleep General Notes CPT CODE 44038; Auth orization Number: [id number], Authorization Valid from/to: 11/14/2024 - 05/14/2025, Gloria Huber 11/19/2024 12:37:05 PM > referral faxed, Gloria Huber 12/04/2024 02:36:54 PM > patient reported Sleep Lab left her a voicemail / she has not called them to date to schedule, but does plan to., Gloria Huber 12/18/2024 10:44:20 AM > per Helene at [facility] - patient is scheduled as above., Gillian Rm 01/24/2025 11:58:54 AM >Results reviewed with the patient. Referral Priority Routine Referral Appointment Date 12/31/2024 Medications Medication SIG (Take, Route, Frequency, Duration) Notes Start Date End Date Status acetaminophen-hydrocodo ne 325 mg-10 mg 1-2 tabs orally Q4-6H prn pain (max 5/day; hold within 4H of planned sleep) for 28 days Do not fill prior to 03/13/25. ICD-10: G89.29 03/05/2025 Active losartan 50 mg 1 tab(s) orally once a day Active acetaminophen-hydrocodo ne 325 mg-10 mg 1-2 tabs orally Q4-6H prn pain (max 5/day; hold within 4H of planned sleep) for 28 days Do not fill prior to 04/10/25. ICD-10: G89.29 03/05/2025 Active ALPRAZolam 0.5 mg 1 tab(s) orally once a day for 30 days Active meloxicam 15 mg 1 tab(s) orally once a day for 30 days Active carvedilol 12.5 mg 1 tab(s) orally 2 times a day Active acetaminophen-hydrocodo ne 325 mg-10 mg 1-2 tabs orally Q4-6H prn pain (max 5/day; hold within 4H of planned sleep) for 28 days Do not fill prior to 05/08/25. ICD-10: G89.29 03/05/2025 Active famotidine 20 mg 1 tab(s) orally 2 times a day for 90 days Active nitroglycerin 0.4 mg 1 tab(s) sublingual ly as directed for 30 days Active FLUoxetine 40 mg 2 cap(s) orally once a day Active nortriptyline 50 mg 1 cap(s) orally once a day Active gabapentin 300 mg 1 cap(s) orally 3 times a day Active pantoprazole 40 mg 1 tab(s) orally once a day Active glipiZIDE 10 mg 1 tab(s) orally 2 times a day Active tiZANidine 4 mg 1-2 tab(s) orally every 8 hours, as needed Active Hair Skin and Nails Multiple Vitamins with Minerals 1 tab(s) orally once a day Active traZODone 150 mg 1 tab(s) orally once a day Active ibuprofen 200 mg 1 tab(s) orally once a day Active Vitamin D3 25 mcg 1 cap(s) orally once a day Active isosorbide mononitrate 30 mg 1 tab(s) orally once a day (in the morning) Active lamoTRIgine 25 mg 1 tab(s) orally 2 times a day for 30 days Active metFORMIN 500 mg 1 tab(s) orally once a day Active Social History Tobacco Use: Social History Observation Description Date Details (start date - stop date) Former Smoker NA - NA Tobacco use: Question Answer Notes : former smoker When did you stop smoking? 2020 AUDIT-C (Standard) Question Answer Notes Did you have a drink containing alcohol in the p ast year? No Points 0 Interpretation Negative Problems Problem Type SNOMED Code ICD Code Onset Dates Problem Status W/U Status Risk Notes Problem Solitary sacroiliitis (285061898) Sacroiliitis, not elsewhere classified (M46.1) Active confirmed Problem Lumbosacral spondylosis without myelopathy (19419129) Spondylosis without myelopathy or radiculopathy, lumbar region (M47.816) Active confirmed Problem High risk drug monitoring status (574416725) MCC (current) use of opiate analgesic (Z79.891) Active confirmed Problem Hypersomnia (87292269) Hypersomnia, unspecified (G47.10) Active confirmed Problem Obstructive sleep apnea syndrome (disorder) (03400436) Obstructive sleep apnea (adult) (pediatric) (G47.33) Active confirmed Problem Chronic pain (56334433) Other chronic pain (G89.29) Active confirmed Problem Essential hypertension (77337603) Essential (primary) hypertension (I10) Active confirmed Problem Lumbosacral spondylosis without myelopathy (43835814) Other spondylosis, lumbar region (M47.896) Active confirmed Problem Backache (117872649) Dorsalgia, unspecified (M54.9) Active confirmed Problem Post-laminectomy syndrome (69064558) Postlaminectomy syndrome, not elsewhere classified (M96.1) Active confirmed Problem Long-term current use of drug therapy (381730578) Other intermediate (current) drug therapy (Z79.899) Active confirmed Problem Vertebrogenic low back pain (780057848744979 101) Vertebrogenic low back pain (M54.51) Active confirmed Vital Signs Temperature 97.6 degrees Fahrenheit 03/05/2025 Oximetry 94 % 03/05/2025 Blood pressure diastolic 87 mm Hg 03/05/2025 Height 67 in 03/05/2025 Blood pressure systolic 138 mm Hg 03/05/2025 Weight 217.4 lbs 03/05/2025 BMI 34.05 kg/m2 03/05/2025 Encounters Encounter Location Date Provider Diagnosis [facility] [address] [place], [place] [id number] 09/10/2024 Maddie Ibrahim Vertebrogenic low ba ck pain M54.51 ; Postlaminectomy syndrome, not elsewhere classified M96.1 ; Spondylosis without myelopathy or radiculopathy, lumbar region M47.816 ; Sacroiliitis, not elsewhere classified M46.1 ; Obstructive sleep apnea (adult) (pediatric) G47.33 and Other intermediate teacher (current) drug therapy Z79.899 [facility] [address] [place], [place] [id number] 11/13/2024 Laci Mayorga Vertebrogenic low ba ck pain M54.51 ; Other chronic pain G89.29 ; Obstructive sleep apnea (adult) (pediatric) G47.33 and Other intermediate (current) drug therapy Z79.899 [facility], [facility] [address] [place], [place] [id number] 12/04/2024 Laci Mayorga Vertebrogenic low ba ck pain M54.51 ; Other chronic pain G89.29 ; Obstructive sleep apnea (adult) (pediatric) G47.33 and terminal gauger (current) use of opiate analgesic Z79.891 [facility] [address] [place], [place] [id number] 01/01/2025 Laci Mayorga Vertebrogenic low ba ck pain M54.51 ; Other chronic pain G89.29 ; Essential (primary) hypertension I10 and Obstructive sleep apnea (adult) (pediatric) G47.33 [facility] [address] [place], [place] [id number] 03/05/2025 Laci Mayorga Vertebrogenic low ba ck pain M54.51 ; Other chronic pain G89.29 and Obstructive sleep apnea (adult) (pediatric) G47.33 Assessments Encounter Date Diagnosis (ICD Code) Assessment Notes Treatment Notes Treatment Clinical Notes Section Notes 03/05/2025 Other chronic pain (ICD-10 - G89.29) Patient reports that taking her pain medication allows her to work in her yard. Plan to continue oral opioid medication at today's visit. 03/05/2025 Vertebrogenic low back pain (ICD-10 - M54.51) Chronic axial lumbosacral spine pain and lower extremity pain. 01/01/2025 Other chronic pain (ICD-10 - G89.29) Patient reports her pain control was somewhat better with the increase from 3 tablets to 4 tablets per day but still has a lot of pain most days. She is requesting an additional pain tablet per day. Plan to continue oral opioid medication management with a quantity titration. 01/01/2025 Vertebrogenic low back pain (ICD-10 - M54.51) Chronic axial lumbosacral spine pain and lower extremity pain. 12/04/2024 Other chronic pain (ICD-10 - G89.29) Patient reports that most days she needs additional pain medication and ends up just hurting. Plan to continue oral opioid medication management with a quantity titration and follow up in 4 weeks. 12/04/2024 Vertebrogenic low back pain (ICD-10 - M54.51) Chronic axial lumbosacral spine pain and lower extremity pain. 11/13/2024 Other chronic pain (ICD-10 - G89.29) Patient desires to resume prior efficacious opioid therapy. Plan to initiate oral opioid medication management via this facility. 11/13/2024 Vertebrogenic low back pain (ICD-10 - M54.51) Chronic axial lumbosacral spine pain and lower extremity pain. Prior surgery with history of insufficient benefit. Consider updated imaging. Consider SCS trial and possible implant if successful trial achieved. 09/10/2024 Postlaminectomy syndrome, not elsewhere classified (ICD-10 - M96.1) Plan to obtain 07/2023 Operative Note from [facility]. 09/10/2024 Vertebrogenic low back pain (ICD-10 - M54.51) Recommend updated lumbar spine MRI or CT. Patient to consider after discussing treatment options with Dr. Mayorga. 09/10/2024 Spondylosis without myelopathy or radiculopathy, lumbar region (ICD-10 - M47.816) Significant spondylosis and disc disease noted upon review of prior imaging study. 11/13/2024 Obstructive sleep apnea (adult) (pediatric) (ICD-10 - G47.33) Patient with history of untreated sleep apnea. Plan an updated sleep study and possible another attempt at treatment (patient with prior history of inability to tolerate CPAP device use). Patient is motivated to try the treatment again. Plan to restrict opioid usage in relation to sleep for safety concerns: patient has verbalized understanding to hold short-acting opioids within four hours of planned sleep. Patient has been counseled on the risks of sleep apne, with or without opioid and / or other sedative usage, and the patient verbalized understanding and acceptance of the increased risk (worsened sleep apnea, respiratory depression, ) with opioid and / or sedative substance usage. Patient has been counseled that synergistic risk occurs with concomitant opioid and sedative usage. Patient has been counseled to hold opioid and / or sedative substances prior to planned sleep or dangerous activities and patient verbalized understanding that noncompliance would be at patient's increased risk. 03/05/2025 Obstructive sleep apnea (adult) (pediatric) (ICD-10 - G47.33) History of untreated sleep apnea. Updated sleep study completed and previously reviewed with patient by phone. The study report revealed an AHI = 4 and a REM AHI = 10 and a SaO2 anabel of 84%. This study report does not qualify patient for CPAP therapy and patient has stated that she will not use CPAP therapy anyway (history of intolerance to CPAP device therapy). Plan to continue to restrict opioid usage in relation to sleep for safety concerns. 12/04/2024 Obstructive sleep apnea (adult) (pediatric) (ICD-10 - G47.33) Patient with history of untreated sleep apnea. Plan an updated sleep study and possibly another attempt at treatment. Patient was given the phone number for the sleep lab at today's visit to assist with scheduling study. Plan to restrict opioid usage in relation to sleep for safety concerns: patient has verbalized understanding to hold short-acting opioids within four hours of planned sleep. 01/01/2025 Essential (primary) hypertension (ICD-10 - I10) Education sheet given at today's visit; patient to address with PCP. 01/01/2025 Obstructive sleep apnea (adult) (pediatric) (ICD-10 - G47.33) Patient with history of untreated sleep apnea. Patient reports she completed her sleep study last night. This office to follow up with her when report becomes available. Plan to restrict opioid usage in relation to sleep for safety concerns: patient has verbalized understanding to hold short-acting opioids within four hours of planned sleep. 12/04/2024 terminal gauger (current) use of opiate analgesic (ICD-10 - Z79.891) Patient has a total daily MED of 30. This places the [facility] in the [facility] low risk category for total daily opioid usage. Patient declines offer of a Narcan nasal spray prescription. 2022 opioid (OUD) risk tool score = 1. This places the patient in the low risk category. 11/13/2024 Other intermediate teacher (current) drug therapy (ICD-10 - Z79.899) Patient has received the Opioid Analgesic [facility] Patient Counseling Guide. Patient has had opportunity to read the Guide and ask questions pertaining to the Guide. Patient has been advised on 11/13/24 that any suspected patient misuse, abuse, or diversion of controlled substances (i.e. opioids/narcotics /pain killers) WILL result in dissolution of treatment from this clinic. Patients adhering to the concepts contained within the patient's Treatment Agreement will be protected from such termination of care. Patient signed an opioid consent form on 11/13/24. Patient was given a copy of the Treatment Agreement, signed by patient on 08/04/24. 2022 opioid (OUD) risk tool score = 1. This places the patient in the low risk category. 09/10/2024 Sacroiliitis, not elsewhere classified (ICD-10 - M46.1) Consider interventional treatment pending evaluation by Dr. Mayorga. 09/10/2024 Obstructive sleep apnea (adult) (pediatric) (ICD-10 - G47.33) Patient with history of untreated sleep apnea. Consider an updated sleep study and possible another attempt at treatment (patient with prior history of inability to tolerate CPAP device use). 09/10/2024 Other intermediate teacher (current) drug therapy (ICD-10 - Z79.899) Patient was given a copy of the Treatment Agreement, signed by patient on 08/04/24. 2022 opioid (OUD) risk tool score = 1. This places the patient in the low risk category. Plan urine toxicology screen today in anticipation of possibly starting opioid therapy at future visit as well as to assess for any prescribed, unprescribed, and / or illicit controlled substance(s). 09/10/2024 Other Case reviewed, treatment plan approved, and visit note edited by Dr. Mayorga. 11/13/2024 Other Above prescriptions printed for patient to hand carry to the pharmacy of her choice. 03/05/2025 Other The service was provided by ZACHERY Gibbs, as part of the ongoing care plan established by Laci Mayorga MD, who was present in the office for direct supervision during the encounter. Patient was provided with a letter at today's visit informing patient that this clinic is closing due to Dr. Mayorga's halfway; see scanned document. Terminal prescriptions were given to the patient along with tapering instructions. 12/04/2024 Other The service was provided by ZACHERY Gibbs, as part of the ongoing care plan established by Laci Mayorga MD, who was present in the office for direct supervision during the encounter. 01/01/2025 Other The service was provided by ZACHERY Gibbs, as part of the ongoing care plan established by Laci Mayorga MD, who was present in the office for direct supervision during the encounter. Plan Of Treatment No Information Insurance Providers Payer Name Payer Address Payer Phone Subscriber Number Group Number Insured Name Patient Relationship to Insured Coverage Start Date Coverage End Date [employer] [address] [address] [place] [address] [phone] [id number] Crystal Ruffin Self - patient is the insured Medical (General) History Medical History History ICD Code Chronic pain Low back pain, lower extremity pain Lumbar spondylosis, disc dis ease, wedging of vertebrae, scoliosis, spondylolisthesis and L4-5 hardware as noted upon review of 2022 plain films report Lumbar spinal stenosis, mild to moderate, as noted upon review of 2021 MRI report Sacroiliitis Neck pain Mixed hyperlipidemia Diabetes mellitus type 2 Diabetic peripheral neuropathy Coronary artery disease Hypertension Asthma Iron deficiency anemia Anxiety and major depressive disorder Migraines GERD Sleep apnea, (patient with h istory of inability to tolerate use of a CPAP device) Obesity, mild (history of morbid obesity ) Surgical History Surgery Date(Month/Year) Hernia repair Tubal ligation, 1979 Carpal tunnel release, bilateral, 2013 Placement of stents, cardiac, x 22013, 2017 Shoulder surgery, right, performed in [place], [place], 2016 Back surgery, performed at [facility] in [place], [place], 08/03/23 Shoulder surgery, left, performed at [facility] in [place], [place], 07/2024
[2025-05-04 02:23] LABS: Hematocrit 40.6 % (36-47); Hemoglobin 12.80 g/dL (11.27-16.99); Mean Corpuscular HGB Conc 31.5 g/dL (30-55); Mean Corpuscular Hemoglobin 27.5 pg (27-33); Mean Corpuscular Volume 87.3 fl (85-98); Nucleated Red Blood Cells % 0 %; Platelet Count 193 10^3/cmm (157-399); Red Blood Count 4.65 10^6/uL (3.85-5.65); White Blood Count 7.23 10^3/uL (3.29-11.43)
[2025-05-04 02:27] LABS: Ketone (Acetest) Serum Negative (Negative)
[2025-05-04 02:33] LABS: Alanine Aminotransferase 30 U/L (0-33); Albumin Level 3.5 g/dL (3.5-5.2); Alkaline Phosphatase 148 U/L (35-105); Anion Gap 16.0 (5-19); Aspartate Amino Transferase 40 U/L (0-32); Blood Urea Nitrogen 14 mg/dL (8-23); Calcium 9.7 mg/dL (8.5-10.5); Carbon Dioxide 22 mmol/L (22-29); Chloride 99 mmol/L (98-107); Creatinine Clr Calc Pharmacy 88.8288; Globulin 3.9 g/dL (1.3-4.6); Glucose 354 mg/dL (65-115); Osmolality Calculated 291 mOsm/kg (285-295); Potassium 4.0 mmol/L (3.5-5.1); Sodium 133 mmol/L (136-145); Total Protein 7.4 g/dL (6.6-8.7)
== END 2025-05-04 02:34 | disposition left against medical advice (07) ==
PROVIDERS: Physician Assistant; Emergency Provider Family Medicine; PCP Nurse Practitioner Primary Care
DX: Z01.89 Encounter for other specified special examinations (principal); Z53.21 Procedure and treatment not carried out due to patient leaving prior to being seen by health care provider
CPT/HCPCS: 36416; 80053; 82009; 82962; 85025; 99283

== ENCOUNTER 2025-07-09 10:47 | Emergency (ER) | payer MEDICARE, MEDICAID, SELFPAY ==
[2025-07-09 10:53] VITALS: BP 86/61; PULSE 91; RESP 16; TEMP 36.8; O2SAT 94; BMI 35.0
--- OUTSIDE RECORDS SUMMARY | 2025-07-09 10:55 | XMS_ITS | Clinical Summary ---
Author Organization [facility] Address [address] [address] [place] [address] Care Team Providers Care Ditch Rider Name Role Phone Unavailable Primary Care Provider [...] on file Legal Sex Female 5:01 AM FLAT SURFACER JEWEL Gender Identity Not on file Sexual Orientation Not on file Last Filed Vital Signs Vital Sign Reading Time Taken Comments Blood Pressure 120/81 10/22/2019 9:06 AM FLAT SURFACER JEWEL Pulse 96 10/22/2019 9:06 AM FLAT SURFACER JEWEL Temperature 38 C (100.4 F) 06/18/2019 10:05 AM CDT Respiratory Rate 13 06/18/2019 11:10 AM CDT Oxygen Saturation 97% 10/22/2019 9:06 AM FLAT SURFACER JEWEL Inhaled Oxygen Concentration - - Weight 108 kg (238 lb) 10/22/2019 9:06 AM FLAT SURFACER JEWEL Height 170.2 cm (5' 7 ) 10/22/2019 9:06 AM FLAT SURFACER JEWEL Body Mass Index 37.28 10/22/2019 9:06 AM FLAT SURFACER JEWEL Plan of Treatment Health Maintenance Due Date [...] Comments HEMOGLOBIN A1C Routine 12/07/2017 3:02 PM FLAT SURFACER JEWEL MAMMO SCREEN BILAT W OR WO CAD Routine 05/20/2017 LIPID PANEL Routine 05/09/2017 from Last 3 Months or Most Recently Relevant to Health Maintenance Results * (ABNORMAL) HEMOGLOBIN A1C (12/07/2017 3:02 PM FLAT SURFACER JEWEL) HEMOGLOBIN A1C 7.0(H) 4.0 - 6.0 % 12/08/2017 11:41 AM FLAT SURFACER JEWEL [facility] [place] [facility] EST. AVG GLUCOSE, A1C 154 mg/dL 12/08/2017 11:41 AM FLAT SURFACER JEWEL [facility] [place] [facility] Blood Venipuncture / Unknown 12/07/2017 3:02 PM FLAT SURFACER JEWEL 12/07/2017 3:07 PM FLAT SURFACER JEWEL Narrative [facility] [place] [facility] - 12/08/2017 11:41 AM FLAT SURFACER JEWEL Test performed on BulbII instrumentation using HPLC methodology us Pooja Mclean DO CHEMISTRY ORDERABLES Final Result [facility] CLIA# [id number] [address] [place] [address] * MAMMO SCREEN BILAT W OR WO [...] Advance Directives For more information, please contact: [phone] * Full Code (Latest Code Status on File) Date Activated Date Inactivated Comments 12/07/2017 2:30 PM 12/08/2017 2:52 PM
--- OUTSIDE RECORDS SUMMARY | 2025-07-09 10:55 | XMS_ITS | Encounter Summary ---
Author Organization [facility] Address [address] [place] [address] Care Team Providers Care Pastry Cook Name Role Phone Unavailable Primary Care Provider Unavailabl e Encounter Details Date Type Department Care Team (Late st Contact Info) Description 12/11/2001 Outpatient Historical [facility] Social History Tobacco Use Types Packs/Day Years Used Date Smoking Tobacco: Never Assessed Comments Unknown Sex and Gender Information Value Date Recorded Sex Assigned at Not on file Legal Sex Female 5:01 AM WASH OIL COOLER OPERATOR Gender Identity Not on file Sexual Orientation Not on file documented as of this encounter Plan of Treatment Not on file documented as of this encounter Visit Diagnoses Not on filedocumented in this encounter
--- OUTSIDE RECORDS SUMMARY | 2025-07-09 10:55 | XMS_ITS | Patient Health Record ---
Author Organization [facility] Address [address] [place] [address] Care Team Providers Care Airport Operations Manager Name Role Phone Ministerio Escalante Unavailable Unavailable Allergies Allergen (clinical drug ingredient) Drug/Non Drug Allergy documented on EMR Reaction Allergy Type Onset Date Status codeine codeine Unknown Drug Allergy Active Reason For Referral No Information Medications Medication SIG (Take, Route, Frequency, Duration) Notes Start Date End Date Status Fish Oil 875 MG Capsule Orally Active Lipitor 40 MG Tablet 1 tablet Orally Once a day Active Xanax 0.5 mg tablet 1 tab(s) orally 3 times a day Active Gabapentin 300 mg Capsule 1 capsule Orally Three times a day; Duration: 30 day(s) 08/20/2015 Active ALPRAZolam 0.5 mg tablet (Schedule IV Drug) TK 1 T PO TID PRN; Duration: 30 Active Atorvastatin Calcium 40 mg tablet 1 tab(s) orally once a day Active Omeprazole 40 mg delayed release capsule 1 cap(s) orally once a day *Pick strength-form from [facility] for eRX* Active Janumet XR 1000 mg-100 mg tablet, extended release 1 tab(s) orally once a day (in the evening) *Pick strength-form from [facility] for eRX* Active metFORMIN HCl 500 MG Tablet 1 tablet with meals Orally Twice a day Active Losartan Potassium 50 mg tablet 1 tab(s) orally once a day Active CeleXA *Pick strength-f orm from [employer] for eRX* Active Fenofibrate 54 MG Tablet 1 tablet with a meal Orally Once a day Active Losartan Potassium 50 MG Tablet Orally Active Aspirin 1 tab Oral *Pick strength-f orm from [facility] for eRX* Active Coreg 6.25 MG Tablet 1 tablet with food Orally Twice a day Active Farxiga 5 mg tablet 1 tab(s) orally once a day Active Medrol (Khanh) 4 mg Tablet as directed Orally As directed; Duration: 6 days *Reorder from [facility] for eRx and Interaction Alerts* 08/20/2015 Active Citalopram Hydrobromide 40 mg tablet 1 tab(s) orally once a day Active metFORMIN HCl 500 mg tablet, extended release 1 tab(s) orally twice a day *Pick strength-form from [facility] for eRX* Active Coreg 6.25 mg tablet 1 tab(s) orally 2 times a day Active Social History Social History Additional Details Category Social Info Options Details Migrated Social History Drugs/Alcohol: (Alcohol Screen): Did you have a drink containing alcohol in the past year?: No, Points: 0 Tobacco Use: (Tobacco Use/Smoking): Smoking Status:: current smoker , How often do you smoke cigarettes?: every day, How many cigarettes a day do you smoke?: 08-29 Problems Problem Type SNOMED Code ICD Code Onset Dates Problem Status W/U Status Risk Notes Problem Spinal stenosis of lumbar region (86197834) Spinal stenosis, lumbar region (M48.06) Active confirmed Problem Solitary sacroiliitis (594924300) Sacroiliac inflammation (M46.1) Active confirmed Plan Of Treatment No Information Insurance Providers Payer Name Payer Address Payer Phone Subscriber Number Group Number Insured Name Patient Relationship to Insured Coverage Start Date Coverage End Date [facility] [employer] [address] [place] [address] [id number] Crystal Ruffin Self - patient is the insured Medical (General) History Medical History History ICD Code hyperparathyroidism hypercalcemia Diabetes Type II dx dyslipidemia Esophageal reflux hypertension depression Surgical History Surgery Date(Month/Year) carpal tunnel surgery bilat 2013
--- OUTSIDE RECORDS SUMMARY | 2025-07-09 10:55 | XMS_ITS | Clinical Summary ---
Author Organization [facility] Address [address] 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 Name Role Phone Unavailable Primary Care Provider [...] 11/10/2022 Tension-type headache, not intractable 3 Old CA (myocardial infarction) 11/10/2022 Type 2 diabetes mellitus wit h complication, without long-term current use of insulin 12/07/2017 Essential hypertension 12/07/2017 Anxiety 12/07/2017 Non-cardiac chest pain 12/07/2017 Leukocytosis 12/07/2017 Immunizations Immunization Administration Dates [...] on file Legal Sex Female 5:04 AM [employer] Gender Identity Not on file Sexual Orientation Not on file Last Filed Vital Signs Vital Sign Reading Time Taken Comments Blood Pressure 158/92 11/10/2022 10:52 AM [employer] Pulse 101 11/10/2022 10:47 AM [employer] Temperature 36.2 C (97.1 F) 11/10/2022 10:47 AM [employer] Respiratory Rate 13 06/18/2019 11:1 0 AM CDT Oxygen Saturation 95% 11/10/2022 10: 47 AM [employer] Inhaled Oxygen Concentration - - Weight 106.8 kg (235 lb 6.4 oz) 023 10:47 AM [employer] Height 170.2 cm (5' 7 ) 11/10/2022 10:4 7 AM [employer] Body Mass Index 36.87 11/10/2022 10:47 AM [employer] Plan of Treatment Health Maintenance Due Date [...] Additional history exists LDL CHOLESTEROL ANNUAL 11/11/2023 3, 05/09/2017, 01/20/2017 RSV VACCINE (60+ or ) (1 - Risk 60-74 years 1-dose series) 2025 INFLUENZA VACCINE (#1) 2025 08/09/2022, 2016 COVID-19 Vaccine (2 - 2024- season) 2025 07/07/2021 DTAP/TDAP/TD VACCINES (3 - Td or Tdap) 03/24/2030 03/24/2020, 06/18/2019 HEPATITIS B VACCINES Aged Out No long er eligible based on patient's age to complete this topic Procedures Procedure Name Priority Date/Time Associated Diagnosis Comments LIPID PANEL Routine 11/11/2022 2:36 PM [employer] Type 2 diabetes mellitus with other circulatory complication, without long-term current use of insulin (CMS/HCC) Essential hypertension HEMOGLOBIN A1C Routine 11/11/2022 2:36 PM [employer] Type 2 diabetes mellitus with other circulatory complication, without long-term current use of insulin (CMS/HCC) MAMMO SCREEN BILAT W OR WO CAD Routine 05/20/2017 12:00 AM CDT from Last 3 Months or Most Recently Relevant to Health Maintenance Results * (ABNORMAL) HEMOGLOBIN A1C (11/11/2022 2:36 PM [employer]) HEMOGLOBIN A1C 11.3(H) <5.7 % of total [...] ESTIMATED AVERAGE GLUCOSE (MG/DL) 278 mg/dL [facility] ESTIMATED AVERAGE GLUCOSE (MMOL/L) 15.4 mmol/L [facility] Comment: Test Performed at: [facility] [address] [place] [address] Suni Dasilva MD Blood 11/11/2022 2:36 PM [employer] 11/12/2022 1:09 AM [employer]ER [employer] POUNDER Sonia Carlos [facility] CHEMISTRY ORDERABLES Final Result [facility] [phone] [facility] [address] [facility] [place] [address] * (ABNORMAL) LIPID PANEL (11/11/2022 2:36 PM [employer]) Pathologist [facility] CHOLESTEROL 176 <200 mg/dL [facility] [...] factors. LDL-C is now calculated using the Luis-Aleman calculation, which is a validated novel method providing better accuracy than the Friedewald equation in the estimation of LDL-C. Luis SS et al. VIRGILIO. 2013;310(19): 3632-6729 (http://education.[employer]/faq/NCC036) CHOL/HDL RATIO 3.9 <5.0 (calc) [facility] TOTAL NON-HDL CHOL(LDL+VLDL) 131(H) <130 mg/dL (calc) [facility] Comment: For patients with diabetes plus 1 major ASCVD risk factor, treating to a non-HDL-C goal of <100 mg/dL (LDL-C of <70 mg/dL) is considered a therapeutic option. Test Performed at: [facility] [id number] [facility] [place] [address] Suni Dasilva MD Blood 11/11/2022 2:36 PM [employer] 11/12/2022 1:09 AM [employer]ER Sonia F[facility] CHEMISTRY ORDERABLES Final Result [facility] [phone] [facility] [address] [address] [facility] [place] [address] * MAMMO SCREEN BILAT W OR WO CAD (05/20/2017 12:00 AM CDT) Anatomical Region Laterality Modality Breast Bilateral Other Abstract Spg Provider MAMMO ORDERABLES Final Res ult from Last 3 Months or Most Recently Relevant to Health Maintenance Insurance [facility] MEDICARE HMO
--- NOTE | 2025-07-09 10:57 | CT_ITS ---
WS: [id number] CT HEAD NONCONTRAST HISTORY: fall, head injury TECHNIQUE: Contiguous axial imaging performed through the brain. Bone and soft tissue windows. Sagittal and coronal reformats reviewed. All CT scans at [facility] use at least one of these dose optimization techniques: automated exposure control; mA and/or kV adjustment per patient size (includes targeted exams where dose is matched to clinical indication); or iterative reconstruction. DLP: 2006.98 mGy.cm COMPARISON: None available. No acute intracranial hemorrhage, midline shift or mass effect. Mild cerebral atrophy. Minimal small vessel disease. No prior infarct. Extra axial 5 mm calcific density over the superior LEFT frontal region may be a small meningioma. No mass effect upon the brain. Ventricles: Normal size with no hydrocephalus. Paranasal sinuses: Air-fluid level in the LEFT maxillary sinus. Buckling of the lateral wall of the LEFT maxillary sinus. Suspect fracture through the medial LEFT lamina papyracea. Facial bone CT to follow. Mastoid air cells: Well pneumatized. Calvarium and scalp: Skull is intact with no soft tissue edema or swelling. CT/CT head wo con* [id number] IMPRESSION: 1. No acute intracranial hemorrhage or edema. 2. Minimal small vessel disease. 3. Fractures involving the lateral wall the LEFT maxillary sinus and probably also the LEFT lamina papyracea. Air-fluid level in the LEFT maxillary sinus. Fa cial bone CT to follow. 4. Possible 5 mm extra-axial meningioma adjacent to the LEFT frontal lobe.
--- NOTE | 2025-07-09 10:57 | CT_ITS ---
WS: [id number] CT FACIAL BONES HISTORY: trauamatic facial pain TECHNIQUE: Images obtained from the supraorbital location through the mandible. Soft tissue and bone windows are reviewed. Coronal and sagittal reformats have also been submitted. DLP: 2006.[address] scans at [facility] use at least one of these dose optimization techniques: automated exposure control; mA and/or kV adjustment per patient size (includes targeted exams where dose is matched to clinical indication); or iterative reconstruction. COMPARISON: None available. Moderate size air-fluid level in the LEFT maxillary antrum. There are minimally displaced fractures involving the lateral and anterior woods of the maxillary sinus. There are additional nondisplaced fractures involving the floor of the posterior orbit. Soft tissue hematoma is noted near the fracture. There is no entrapment of the adjacent rectus muscle. The inferior rectus muscle is very close to the fracture without entrapment. Nondisplaced fracture in the LEFT lamina papyracea. Zygomatic arches and nasal bones are intact. Medial and lateral pterygoid plates are normal. Mandibular condyles are normally positioned in the temporal fossa. Erosions and degenerative changes at the RIGHT TM joint. There is mild soft tissue contusion centered over the LEFT orbit and globe and facial bones. CT/CT facial bones wo con* [id number] IMPRESSION: 1. LEFT maxillary sinus fractures. There are minimally displaced fractures inv olving the lateral and anterior wall of the maxillary sinus. Nondisplaced fract ure in the anterior floor and through the lamina papyracea. 2. Blood fluid level in the LEFT maxillary sinus. 3. No entrapment of the inferior rectus muscle through the fracture in the nely or the LEFT orbit. 4. Intact zygomatic arch. 5. Intact nasal bones.
--- NOTE | 2025-07-09 10:57 | W.ED.FALL ---
HPI - Fall General: Chief Complaint: Fall Stated Complaint: fall, hit head, GUILLEN, dizzy Time Seen by Provider: 07/09/25 10:52 History of Present Illness: 60-year-old female with a history of anxiety, hypertension, depression, neuropathy, diabetes, who presents to the emergency room with complaints of a head injury she suffered yesterday. She said she got a little dizzy and tripped and fell. Her blood pressure is a little low on presentation but she appears to historically run low. No fevers. No cough. No chest pain. She has a bruise on her left face with pain there and a headache. No altered mental status. No focal motor deficits. She is not on any anticoagulation. No loss of consciousness. She does have some neck pain. Related Data Home Medications ?Medication ?Instructions ?Recorded ?Confirmed acetaminophen 300 mg-codeine 30 mg 1 tab PO QID PRN Pain 07/09/25 07/09/25 tablet alprazolam 0.5 mg tablet 0.5 mg PO BEDTIME 07/09/25 07/09/25 aspirin 81 mg chewable tablet 81 mg PO DAILY 07/09/25 07/09/25 carvedilol 12.5 mg tablet 12.5 mg PO BID 07/09/25 07/09/25 docusate sodium 100 mg capsule 100 mg PO BID PRN Constipation 07/09/25 07/09/25 (Stool Softener) famotidine 20 mg tablet 20 mg PO BID PRN Acid Reflux 07/09/25 07/09/25 fluoxetine 40 mg capsule 80 mg PO QAM 07/09/25 07/09/25 gabapentin 300 mg capsule 300 mg PO TID 07/09/25 07/09/25 glipizide 10 mg tablet 10 mg PO BID 07/09/25 07/09/25 isosorbide mononitrate 30 mg 30 mg PO DAILY 07/09/25 07/09/25 tablet,extended release 24 hr lamotrigine 25 mg tablet 25 mg PO BID 07/09/25 07/09/25 losartan 50 mg tablet 50 mg PO DAILY 07/09/25 07/09/25 meloxicam 15 mg tablet 15 mg PO DAILY 07/09/25 07/09/25 metformin 500 mg tablet 500 mg PO BID 07/09/25 07/09/25 nitroglycerin 0.4 mg sublingual See Rx Instructions .Route .COMPLEX 07/09/25 07/09/25 tablet nortriptyline 50 mg capsule 50 mg PO BEDTIME 07/09/25 07/09/25 pantoprazole 40 mg tablet,delayed 40 mg PO DAILY 07/09/25 07/09/25 release sucralfate 1 gram tablet 1 g PO QID 07/09/25 07/09/25 tizanidine 4 mg tablet 1 - 8 mg PO .Q6-8H PRN Spasms 07/09/25 07/09/25 trazodone 150 mg tablet 150 mg PO BEDTIME 07/09/25 07/09/25 Previous Rx's ?Medication ?Instructions ?Recorded cephalexin 500 mg tablet 500 mg PO TID 7 days #21 tabs 07/09/25 hydrocodone 5 mg-acetaminophen 325 1 tab PO Q6H PRN pain #20 tabs 07/09/25 mg tablet ondansetron 8 mg disintegrating 8 mg PO Q6H #14 tabs 07/09/25 tablet polyethylene glycol 3350 17 17 g PO DAILY #510 grams 07/09/25 gram/dose oral powder (Miralax) Allergies Allergy/AdvReac Type Severity Reaction Status Date / Time No Known Allergies Allergy Verified 05/04/25 01:15 Review of Systems Narrative: Constitutional symptoms: Negative except as documented in HPI. Skin symptoms: Negative except as documented in HPI. Eye symptoms: Negative except as documented in HPI. ENMT symptoms: Negative except as documented in HPI. Respiratory symptoms: Negative except as documented in HPI. Cardiovascular symptoms: Negative except as documented in HPI. Gastrointestinal symptoms: Negative except as documented in HPI. Genitourinary symptoms: Negative except as documented in HPI. Musculoskeletal symptoms: Negative except as documented in HPI. Neurologic symptoms: Negative except as documented in HPI. Psychiatric symptoms: Negative except as documented in HPI. Endocrine symptoms: Negative except as documented in HPI. Physical Exam Narrative: EXAM NARRATIVE: General: Alert, no acute distress. Skin: Warm, dry. Head: Normocephalic, bruising to cheek under right eye. Neck: Supple, trachea midline. Eye: Extraocular movements are intact. Ears, nose, mouth and throat: mucosa moist. Cardiovascular: Regular, Normal peripheral perfusion. Respiratory: Lungs are clear to auscultation, respirations are non-labored, breath sounds are equal, Symmetrical chest wall expansion. Gastrointestinal: Soft, Nontender, Non distended Musculoskeletal: Normal ROM, no deformity. Neurological: Alert and oriented, No focal neurological deficit observed. Psychiatric: Cooperative, appropriate mood & affect. Course Vital Signs: Vital signs: Vital Signs Temperature 98.3 F 07/09/25 10:53 Pulse Rate 91 07/09/25 10:53 Respiratory Rate 16 07/09/25 10:53 Blood Pressure 86/61 07/09/25 10:53 Pulse Oximetry 94 07/09/25 10:53 Oxygen Delivery Me thod Room Air 07/09/25 10:53 MDM - Fall Medical Decision Making Medical decision making: Differential diagnosis including but not limited to and based on the above HPI, review of systems and physical exam: patient with fall and head injury. Subdural hematoma, subarachnoid hemorrhage, concussion, skull fracture. Orders placed to evaluate differential diagnosis based on the above differential, HPI and physical exam CT scan of the head was ordered. Also concern for facial fractures and neck fracture so CTs of those were ordered as well. CT head: No acute intracranial process. No intracranial hemorrhage, no evidence of infarct. No evidence of acute fracture. This was reviewed and interpreted by myself the emergency room physician. I also reviewed the radiology report. CT of the facial bones: Left maxillary sinus fracture. Minimally displaced fractures involving the lateral anterior wall of the maxillary sinus. Also anterior floor through the lamina papyracea. Blood fluid level in the left maxillary sinus. No entrapment of inferior rectus muscle. This was reviewed and interpreted by myself the emergency room physician. I also reviewed the radiology report. CT of the cervical spine: Degenerative changes but no fracture. Good alignment. No step-offs. This was reviewed and interpreted by myself the emergency room physician. I also reviewed the radiologist report. I reviewed the patient's medical record. Reexamination Patient remained stable. No increased work of breathing. No altered mental status. No focal motor deficits. Assessment and plan: Maxillary sinus fractures. Concussion Cervical strain ? Marino Flood in the emergency room - Discharged home - Discussed plan with patient. Answered any questions. - Evaluation and treatment of this problem were appropriate in the emergency setting. Lab Data Radiology Impressions Face CT 07/09/25 10:57 IMPRESSION: 1. LEFT maxillary sinus fractures. There are minimally displaced fractures involving the lateral and anterior wall of the maxillary sinus. Nondisplaced fracture in the anterior floor and through the lamina papyracea. 2. Blood fluid level in the LEFT maxillary sinus. 3. No entrapment of the inferior rectus muscle through the fracture in the floor the LEFT orbit. 4. Intact zygomatic arch. 5. Intact nasal bones. Head CT 07/09/25 10:57 IMPRESSION: 1. No acute intracranial hemorrhage or edema. 2. Minimal small vessel disease. 3. Fractures involving the lateral wall the LEFT maxillary sinus and probably also the LEFT lamina papyracea. Air-fluid level in the LEFT maxillary sinus. Facial bone CT to follow. 4. Possible 5 mm extra-axial meningioma adjacent to the LEFT frontal lobe. Cervical Spine CT 07/09/25 11:33 IMPRESSION: 1. No acute cervical spine fracture identified. 2. Facet joint arthropathy disc space narrowing most significant at C5-6 and C6-7. 3. Moderate to severe central foraminal narrowing at C5-6 and C6-7 predominantly due to osteophytes and facet disease. 4. C4 anterolisthesis by 2 mm. All radiology interpretation(s) finalized by discharge Discharge Plan Discharge Patient Disposition: Home Clinical Impression: Facial bone fracture, Cervical strain, Concussion Condition: Stable Prescriptions: New hydrocodone-acetaminophen 5-325 mg tablet 1 tab PO Q6H PRN (Reason: pain) Qty: 20 0RF ondansetron 8 mg tablet,disintegrating 8 mg PO Q6H Qty: 14 0RF Rx Instructions: Take 1/2-1 tab every 6 hours as needed for nausea and vomiting polyethylene glycol 3350 [Miralax] 17 gram/dose powder 17 g PO DAILY Qty: 510 0RF Rx Instructions: Take 1 scoop daily while taking pain medications. cephalexin 500 mg tablet 500 mg PO TID 7 Days Qty: 21 0RF No Action losartan 50 mg tablet 50 mg PO DAILY fluoxetine 40 mg capsule 80 mg PO QAM carvedilol 12.5 mg tablet 12.5 mg PO BID tizanidine 4 mg tablet 1 - 8 mg PO .Q6-8H PRN (Reason: Spasms) meloxicam 15 mg tablet 15 mg PO DAILY sucralfate 1 gram tablet 1 g PO QID glipizide 10 mg tablet 10 mg PO BID isosorbide mononitrate 30 mg tablet extended release 24 hr 30 mg PO DAILY acetaminophen-codeine 300-30 mg tablet 1 tab PO QID PRN (Reason: Pain) lamotrigine 25 mg tablet 25 mg PO BID alprazolam 0.5 mg tablet 0.5 mg PO BEDTIME famotidine 20 mg tablet 20 mg PO BID PRN (Reason: Acid Reflux) pantoprazole 40 mg tablet,delayed release (DR/EC) 40 mg PO DAILY trazodone 150 mg tablet 150 mg PO BEDTIME nitroglycerin 0.4 mg tablet, sublingual See Rx Instructions .ROUTE .COMPLEX Rx Instructions: DISSOLVE ONE TABLET UNDER THE TONGUE EVERY 5 MINUTES NEEDED FOR CHEST PAIN. DO NOT EXCEED A TOTAL OF 3 DOSES IN 15 MINUTES docusate sodium [Stool Softener] 100 mg capsule 100 mg PO BID PRN (Reason: Constipation) gabapentin 300 mg capsule 300 mg PO TID aspirin 81 mg tablet,chewable 81 mg PO DAILY nortriptyline 50 mg capsule 50 mg PO BEDTIME metformin 500 mg tablet 500 mg PO BID Discharge Orders: Discharge ED (Routine); Ordered 07/09/25 Ordered By: Rebekah Harp Referrals: Aimee Villagran FNP [Primary Care Provider, Nurse Practitioner] Navarro Cardenas MD [Physician, Ear, Nose, Throat] - 4-7 days Referral Note: Call for an appointment. Discharge Diet: Usual diet Discharge Activity: Increase activity as tolerated Patient Instructions: Facial Fracture (ED), Concussion (ED), Opioid Safety, Pain Management, Patient Portal & Willi Instructions Activity Restrictions/Additional Instructions: Thank you for choosing [facility] for your healthcare needs today. You have been screened and evaluated and felt safe for discharge. Health conditions do change or evolve sometimes and as such it is important that you follow up with your Primary Doctor to be re checked, 3-5 days is a general good time frame for follow up. You are always welcome to return to the ED for re assessment if your symptoms are worsening or you have new concerns Print Language: Kinyarwanda Coding Level of Care Code ED Fisheries Management Biologist for Pedro Maria
--- NOTE | 2025-07-09 11:33 | CT_ITS ---
WS: [id number] CT CERVICAL SPINE HISTORY: FALL TECHNIQUE: Contiguous 2.0 mm axial imaging performed through the entire cervical spine. Sagittal and coronal reformats also performed. All CT scans at [facility] use at least one of these dose optimization techniques: automated exposure control; mA and/or kV adjustment per patient size (includes targeted exams where dose is matched to clinical indication); or iterative reconstruction. DLP: 2006.98 mGy.cm COMPARISON: None available. Curvature cervical spine. There is also mild straightening of the cervical spine. C4 anterolisthesis by 2 mm. No acute cervical spine fracture identified. No odontoid process fracture. Lateral masses of C1 and C2 are aligned. Unfused posterior ring of C1. C2-C3: Normal. C3-C4: Normal. C4-C5: Bilateral facet joint arthropathy, LEFT greater than RIGHT. No significant stenosis. C5-C6: Diffuse marked osteophytic ridging and mild facet arthritis. Osteophyte encroachment upon the ventral thecal sac and foramina. Moderate central with moderate to severe bilateral foraminal stenosis, RIGHT greater than LEFT. C6-C7: Marked osteophytic ridging around the vertebral bodies encroaching upon the ventral thecal sac and foramina. Bilateral facet joint arthropathy. Severe central and bilateral foraminal stenosis. C7-T1: Mild foraminal stenosis. Paravertebral soft tissues are negative. Transverse foramina are indistinct in the lower cervical spine due to artifact from patient's upper thorax. CT/CT cervical spin wo con* [id number] IMPRESSION: 1. No acute cervical spine fracture identified. 2. Facet joint arthropathy disc space narrowing most significant at C5-6 and C 6-7. 3. Moderate to severe central foraminal narrowing at C5-6 and C6-7 predominant ly due to osteophytes and facet disease. 4. C4 anterolisthesis by 2 mm.
--- NOTE | 2025-07-09 12:30 | PC.PHAR ---
Pt has 2 orders for Metformin 500mg. Lucinda Yan states last rx she picked up was Metformin 500mg bid last fill 03/15/25 30ds. Pt also has Metformin 500mg er-2 tablets daily with supper last fill 09/24/24 90ds. Pt states she takes this medication every day.
[2025-07-09] MEDS: HYDROcodone-acetaminophen 5-325 mg Tablet 1 TAB PO (12:43)
[2025-07-09] MEDS: ondansetron hcl ODT 4 mg Tab PO (12:43)
[2025-07-09 12:45] VITALS: BP 101/45; PULSE 87; O2SAT 95
[2025-07-09 12:47] VITALS: BP 101/45; PULSE 78; O2SAT 96
== END 2025-07-09 12:53 | disposition home or self-care (01) ==
PROVIDERS: Emergency Provider Emergency Medicine; PCP Nurse Practitioner Primary Care
DX: S02.40DA Maxillary fracture, left side, initial encounter for closed fracture (principal); S16.1XXA Strain of muscle, fascia and tendon at neck level, initial encounter; S06.0X0A Concussion without loss of consciousness, initial encounter; Z79.84 Long term (current) use of oral hypoglycemic drugs; E11.40 Type 2 diabetes mellitus with diabetic neuropathy, unspecified; I10 Essential (primary) hypertension; W01.0XXA Fall on same level from slipping, tripping and stumbling without subsequent striking against object, initial encounter
CPT/HCPCS: 70450; 70486; 72125; 99284; J9999; Q0162